=== PATIENT | female | born 2000 | race Caucasian/White ===

== ENCOUNTER 2023-08-25 17:01 | Emergency (ER) | payer MEDICAID, OTHER ==
[2023-08-25 17:30] LABS: Pregnancy Test - Urine (BHCG) POSITIVE (Negative); Specific Gravity 1.034 (1.002-1.036)
[2023-08-25] MEDS ORDERED: Ondansetron ODT 4 MG TAB ONE (17:30)
[2023-08-25 17:31] LABS: Pregu Control Background? CLEAR/WHITE (CLR/WHITE); Pregu Control Bar Appear? YES (CONTROL BAR)
[2023-08-25 17:32] LABS: Bacteria/HPF None Seen HPF (None Seen); Bilirubin Negative (Negative); Blood, Urine Negative (Negative); CAUTI Indications for Culture Pelvic or flank pain; Clarity Clear (Clear); Glucose, Urine (Dipstick) Greater than 1000 mg/dL (Negative); Ketone, Urine Negative (Negative); Leukocyte 25 Leu/uL (Negative); Nitrite Negative (Negative); Protein, Urine (Dipstick) Negative (Neg-Trace); RBC/HPF 0-3 HPF (0-3); Specific Gravity, Urine 1.034 (1.002-1.036); Urobilinogen Normal mg/dL (Less than 2)
[2023-08-25 17:33] LABS: Urine Culture Reflex No No
[2023-08-25] MEDS ORDERED: Lidocaine 2% Viscous 10 mL, Alum & Magn 30 mL SSW SCH (17:45)
[2023-08-25 18:00] LABS: Actual Bicarbonate (HCO3v) 21.5 mEq/L (22-28); Base Excess -3.6 mEq/L (-2.0 to +3.0); Calcium, Ionized (venous) 1.15 mmol/L (1.16-1.32); Chloride (VBG) 100 mmol/L (98-106); Hematocrit-VBG 37 % (36.0-47.0); Hemoglobin (Hb) 12.7 g/dL (11.7-15.5); Potassium (VBG) 3.84 mmol/L (3.70-5.30); Sodium 135 mmol/L (133-146)
[2023-08-25 18:16] LABS: ALT (SGPT) 29 U/L (8-55); AST (SGOT) 23 U/L (5-34); Albumin 3.5 g/dL (3.5-5.0); Alkaline Phosphatase 56 U/L (40-100); Anion Gap 13 mmol/L (10-20); BUN (Urea Nitrogen) 9 mg/dL (7.0-18.7); Bilirubin, Total 0.3 mg/dL (0.2-1.2); Calc. Creatinine Clearance 0 mL/min (70-130); Calcium 9.1 mg/dL (7.8-10.44); Carbon Dioxide 21 mmol/L (22-29); Estimated GFR 111; Globulin 3.5 g/dL (2.4-3.5); Glucose 316 mg/dL (70-105); Lipase 25 U/L (8-78); Magnesium 1.5 mg/dL (1.7-2.2); Potassium 3.8 mmol/L (3.5-5.1); Sodium 135 mmol/L (136-145)
[2023-08-25 18:38] LABS: BHCG - Serum POSITIVE (NEGATIVE); Pregs Control Background? CLEAR/WHITE (CLR/WHITE); Pregs Control Bar Appear? YES (CONTROL BAR)
[2023-08-25 18:38] LABS: Chloride 105 mmol/L (98-107)
[2023-08-25] MEDS ORDERED: Magnesium 2 GM/50 ML BAG (IN WATER) ONE (19:10)
== END 2023-08-25 20:52 | disposition home or self-care (01) ==
LOC: ERS 17:01
DX: O21.9 Vomiting of pregnancy, unspecified (principal); O99.280 Endocrine, nutritional and metabolic diseases complicating pregnancy, unspecified trimester; E11.65 Type 2 diabetes mellitus with hyperglycemia; E83.42 Hypomagnesemia; Z79.84 Long term (current) use of oral hypoglycemic drugs; Z3A.00 Weeks of gestation of pregnancy not specified
CPT/HCPCS: 36415; 36416; 80053; 81001; 81025; 82010; 82805; 83690; 83735; 84702; 84703; 96361; 96365; J3475; Q0162